=== PATIENT | male | born 1960 | race Caucasian/White ===

== ENCOUNTER 2024-12-24 23:56 | Emergency (ER) | payer OTHER, SELFPAY ==
[2024-12-25] VITALS (26 sets, daily range): BP systolic 89–166; BP diastolic 53–88; PULSE 71–110; RESP 11–29; TEMP 37.1; O2SAT 84–100; BMI 21.1
--- NOTE | 2024-12-25 00:46 | ED_ITS ---
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 Patient is adamant that he is not having any actual chest pain, he states that he has been having chemo for the past year, he states that it is supposed to be daily, he denies any other symptoms at this time. Related Data Allergies Allergy/AdvReac Type Severity Reaction Status Date / Time No Known Drug Allergies Allergy Verified 12/25/24 00:35 Review of Systems Review of Systems Narrative: General: Denies fever, chills, weight loss HEENT: Denies headache, eye drainage, eye irritation, head trauma, sore throat, voice change Cardiovascular: Denies any chest pain, palpitations, tachycardia Respiratory: Denies any shortness of breath, cough, wheeze, stridor GI/: Positive nausea and vomiting Denies any abdominal pain, diarrhea, bright red blood per rectum, melanotic stools, urinary frequency, urinary retention, dysuria, hematuria MSK: Denies any joint pain, muscle pains, swelling Skin: Denies any rashes, lesions, discoloration Neuro: Denies any headache, lightheadedness, dizziness, fainting, weakness Psych: Denies SI/HI Exam Narrative Exam Narrative: General: Frail, cachectic Cooperative, not in acute distress HEENT: Normocephalic, atraumatic, PERRLA, normal sclera, eyelids normal Neck: Active full range of motion, atraumatic Chest: Normal to inspection, negative crepitus, no overlying erythema ecchymosis Respiratory: Normal respiratory effort, not in acute respiratory distress, clear to auscultation bilaterally negative cough, wheeze, tachypnea, rhonchi, rales Cardiology: Regular rate rhythm negative gallop, murmur, rubs GI/: No tenderness to palpation, soft, non rigid, normal to inspection, exam deferred MSK: Full active range of motion in all 4 extremities, atraumatic, no tenderness to palpation of any bony prominences, PICC line noted to the left upper extremity there is no signs of erythema or purulent discharge noted Skin: No rashes or lesions noted Neuro: Alert awake oriented x3, moves all 4 extremities spontaneously, cranial nerves intact, able to answer all questions appropriately follows commands appropriately Psych: Cooperative, negative suicidal or homicidal ideations Initial Vital Signs Initial Vital Signs: Vital Signs Pulse Oximetry 100 12/25/24 00:04 Course Orders Ordered: ED Orders 12/25/24 01:14 Complete Blood Count AUTO DIFF Stat Comprehensive Metabolic Panel Stat Lipase Stat MAG [Magnesium] Stat 12/25/24 02:37 CT head/brain wo con Stat Discontinued Medications Diphenhydramine HCl (Diphenhydramine 50 Mg/Ml Vial) 25 mg IV NOW ONE Stop: 12/25/24 02:01 Last Admin: 12/25/24 02:17 Dose: 25 mg Documented By: CHICO Hydromorphone HCl (Hydromorphone 1 Mg Inj) 1 mg IV NOW ONE Stop: 12/25/24 02:38 Last Admin: 12/25/24 02:51 Dose: 1 mg Documented By: ALEXANDRA Sodium Chloride (Normal Saline 0.9%) 1,000 mls @ 1,000 mls/hr IV BOLUS ONE Stop: 12/25/24 01:45 Last Infusion: 12/25/24 02:17 Dose: Infused Documented By: Admin: 12/25/24 01:11 Dose: 1,000 mls/hr Documented By: CHICO Metoclopramide HCl (Metoclopramide 10 Mg/2 Ml Inj) 10 mg IV NOW ONE Stop: 12/25/24 02:01 Last Admin: 12/25/24 02:17 Dose: 10 mg Documented By: CHICO Morphine Sulfate (Morphine 4 Mg/Ml Inj) 4 mg IV NOW ONE Stop: 12/25/24 00:49 Last Admin: 12/25/24 01:10 Dose: 4 mg Documented By: CHICO Ondansetron HCl (Ondansetron 4 Mg/2 Ml Inj) 4 mg IV NOW ONE Stop: 12/25/24 00:47 Last Admin: 12/25/24 01:10 Dose: 4 mg Documented By: CHICO Vital Signs Vital signs: Vital Signs - 8 hr 12/25/24 00:04 12/25/24 00:05 12/25/24 00:05 Temperature Pulse Rate 105 H Respiratory Rate Blood Pressure 166/88 H Pulse Oximetry 100 100 Oxygen Delivery Method 12/25/24 00:08 12/25/24 00:08 12/25/24 00:30 Temperature 98.7 F 98.7 F Pulse Rate 105 H 101 H 88 Respiratory Rate 20 14 Blood Pressure 166/88 H 166/88 H Pulse Oximetry 100 100 99 Oxygen Delivery Method Room Air Room Air Room Air 12/25/24 00:30 12/25/24 01:00 12/25/24 01:00 Temperature Pulse Rate 92 H Respiratory Rate 15 Blood Pressure 117/68 105/59 L Pulse Oximetry 98 Oxygen Delivery Method 12/25/24 01:30 12/25/24 01:30 12/25/24 02:00 Temperature Pulse Rate 86 87 Respiratory Rate 21 14 Blood Pressure 111/62 Pulse Oximetry 99 97 Oxygen Delivery Method Room Air 12/25/24 02:00 Temperature Pulse Rate Respiratory Rate Blood Pressure 110/64 Pulse Oximetry Oxygen Delivery Method MDM - Nausea/Vomiting/Diarrhea Differential Diagnosis Differential diagnosis: Likely drug-induced nausea and vomiting, dehydration and other (Electrolyte abnormality) Lab Data 12/25/24 01:14 12/25/24 01:14 Labs: Lab Results 12/25/24 Range/Units 01:14 WBC 0.6 L* (4.5-11.0) X10^3/uL RBC 2.44 L (4.5-5.9) X10^6/uL Hgb 8.4 L (13.5-17.5) g/dL Hct 24.8 L (41-53) % MCV 101.9 H (80-100) fL MCH 34.6 H (26-34) PG MCHC 34.0 (30-36) % RDW 16.8 H (11.6-14.8) % Plt Count 24 L* (150-400) X10^3/uL Neut % (Auto) 36.5 L (50-75) % Lymph % (Auto) 53.0 H (25-40) % [place] % (Auto) 7.4 (3-14) % Eos % (Auto) 0.8 L (2-4) % Baso % (Auto) 2.3 H (0-2) % Neut # (Auto) 200 L (9629-4485) /uL Lymph # (Auto) 300 L (7501-4710) /uL [place] # (Auto) 0 (0-900) /uL Eos # (Auto) 0 (0-450) /uL Baso # (Auto) 0 (0-100) /uL Platelet Estimate Decreased on smear RBC Morphology See below Macrocytosis 1+ H Sodium 138 (137-145) mmol/L Potassium 3.3 L (3.4-5.1) mmol/L Chloride 109 H (98-107) mmol/L Carbon Dioxide 21 L (22-32) mmol/L BUN 15 (9-20) mg/dL Creatinine 0.80 (0.66-1.25) mg/dL Estimated GFR > 60 (>60) mL/min BUN/Creatinine Ratio 18.8 (6-22) Glucose 107 H (70-99) mg/dL Calcium 9.0 (8.4-10.2) mg/dL Magnesium 1.6 (1.6-2.3) mg/dL Total Bilirubin 0.9 (0.2-1.3) mg/dL AST 49 (17-59) IU/L ALT 65 H (<50) IU/L Alkaline Phosphatase 89 (38-126) U/L Total Protein 6.1 L (6.3-8.2) g/dL Albumin 3.6 (3.5-5.0) g/dL Globulin 2.5 (1.7-4.1) g/dL Albumin/Globulin Ratio 1.4 (1.0-2.8) Lipase 23 (23-300) U/L Imaging Data CT scan - head: Radiologist's Impression: Preliminary read showing low attenuation structure within the medial left occipital with blurring of the osman-white cortical interface possibly related to acute or subacute infarct no comparison available [facility] Narrative Medical decision making narrative: 64-year-old male with a past medical history of leukemia on chemotherapy presenting from home via EMS for evaluation of nausea and vomiting, states that he had his chemotherapy on 12/24/2024 states that he normally does get nauseous but states that this was a little worse than normal therefore called medics, he states that after he threw up was having some burning sensation to his chest but denies any actual chest pain, he states that this is common whenever he does throw up. At time of evaluation he is adamant that he is not having any chest pain or shortness breath. His nausea has significantly improved, but is complaining of a dull headache. He denies any other symptoms at this time. Had lab work performed here, patient noted to be leukopenic at 0.6, however patient is currently undergoing chemotherapy, platelets also low at 24 however patient is not having any signs of bleeding no indication for platelet transfusion at this time, hemoglobin 8.4 no previous for comparison but patient not having any signs of bleeding, patient is afebrile, patient Chem panel otherwise unremarkable slight hypokalemia at 3.3 otherwise lab work without any acute findings 7.9.25 @ 0230: Patient was re-evaluated, he is stating that his nausea and vomiting has completely resolved, however he states that he is still having a headache. He states that he has been headache intermittent and persistent for several months, states it is not worse than normal but states that the nausea and vomiting ?flared it up he states that he has been having this dull headache ever since he had brain surgery performed. At time of evaluation NIH of 0 no focal deficits he denies any head strike trauma not on any blood thinners. Did order migraine cocktail however patient is still stating he is having 9/10 headache therefore we will add additional pain medication as well as obtain CT head to rule out any acute findings. 0320: Discussed case with radiologist Dr. Vick, states that it is difficult to determine whether patient is having acute or remote infarct within the occipital region, she states that it is fairly large and would most likely result in a significant deficit for the patient but without comparison she is unable to definitively state whether it is acute subacute or chronic. Patient states that his brain surgery was done at [facility] at the beginning of this year. He still remains without any focal deficits able to move 4 extremities spontaneously headache has resolved after administration of Dilaudid, however given CT scan read we will reach out to neurology to discuss case further 0329: Discussed case with Neurology at [facility], she states that she will review the patient's records and previous imaging and we will give call back for further evaluation and recommendation. 0349: Discussed case with Dr. godoy (neurology), states that patient patient was seen at [facility], however she was able to see notes as well as previous MRI showing chronic findings therefore doesnt believe that CT finding is acute. No further recs at this time given chronic finding. 0355: Patient was re-evaluated, patient was sleeping soundly in stretcher was able to be aroused, Patient was informed of his findings of his CT scan, has had resolution of his symptoms after administration medication, he was given strict return precautions he verbalized understanding of this and agrees to being discharged home with outpatient follow up Discharge Plan Departure Patient Disposition: Home Clinical Impression: Nausea & vomiting, Headache Activity Restrictions/Additional Instructions: Please follow up with your oncology team as well as her primary care doctor Please read the discharge instructions sheet carefully and bring all papers to all doctor follow-up visits, as it may contain information that your doctor may want to see. Disease processes change and evolve, if your symptoms worsen or if you develop any new symptoms that are concerning to you please return for evaluation. Your evaluation today does not show any evidence of any life- threatening/serious illnesses requiring admission to the hospital or surgery. Please follow-up with your doctor for re-evaluation in approximately 1 day. Seek immediate medical attention for any worrisome symptoms. *If you do not have a primary care provider please contact the [facility] Resource line at [phone]. They will ask some questions about your medical history and help get you set up with a doctor in the community. Referrals: Rivera Ortiz MD [Primary Care Provider, Family Practice] Stand Alone Forms: Patient Portal/API
[2024-12-25] MEDS: MORPHINE 4 MG/ML INJ IV (01:10)
[2024-12-25] MEDS: ONDANSETRON 4 MG/2 ML INJ IV (01:10)
[2024-12-25] MEDS: SODIUM CHLORIDE 0.9% 1,000 ML 1000 ML IV ×2 (01:11→04:08)
[2024-12-25 01:35] LABS: Hematocrit 24.8 % (41-53); Hemoglobin 8.4 g/dL (13.5-17.5); Lymphocytes Absolute Auto 300 /uL (1100-4500); Mean Corpuscular HGB Conc 34.0 % (30-36); Mean Corpuscular Hemoglobin 34.6 PG (26-34); Mean Corpuscular Volume 101.9 fL (80-100)
[2024-12-25 01:38] LABS: Add Manual Diff / Slide Review SLIDE REVIEW; Platelet Count 24 X10^3/uL (150-400)
[2024-12-25 01:49] LABS: Lipase 23 U/L (23-300); Magnesium 1.6 mg/dL (1.6-2.3)
[2024-12-25 01:50] LABS: Alanine Aminotransferase 65 IU/L (<50); Albumin 3.6 g/dL (3.5-5.0); Albumin Globulin Ratio 1.4 (1.0-2.8); Alkaline Phosphatase 89 U/L (38-126); Blood Urea Nitrogen 15 mg/dL (9-20); Calcium 9.0 mg/dL (8.4-10.2); Carbon Dioxide 21 mmol/L (22-32); Chloride 109 mmol/L (98-107); Estimated Glomerular Filt Rate > 60 mL/min (>60); Globulin 2.5 g/dL (1.7-4.1); Glucose 107 mg/dL (70-99); HEMOLYSIS < 15 (0-50); Potassium 3.3 mmol/L (3.4-5.1); Sodium 138 mmol/L (137-145); Total Protein 6.1 g/dL (6.3-8.2)
[2024-12-25 02:07] LABS: Macrocytosis 1+
[2024-12-25] MEDS: METOCLOPRAMIDE 10 MG/2 ML INJ IV (02:17)
[2024-12-25] MEDS: diphenhydrAMINE 50 MG/ML VIAL 25 MG IV (02:17)
--- NOTE | 2024-12-25 02:37 | DI.CT.S_ITS ---
PROCEDURE: CT HEAD/BRAIN WO CON INDICATIONS: Headache, history of brain surgery TECHNIQUE: Noncontrast 4.5 mm thick angled axial sections acquired from the foramen magnum to the vertex, with coronal and sagittal reformats. For radiation dose reduction, the following was used: automated exposure control, adjustment of mA and/or kV according to patient size. COMPARISON: None. FINDINGS: Image quality: Diagnostic. CSF spaces: Basal cisterns are patent. No extra-axial fluid collections. The ventricles are symmetric in size and shape. Brain: No intracranial bleeds or mass effect. There is cerebral volume loss, with resultant ventricular and sulcal prominence. There are periventricular and deep white matter chronic small vessel ischemic changes. There is subacute infarct involving the left [employer] distribution of the left occipital lobe with cytotoxic edema present. There is intracranial internal carotid artery atherosclerosis. Skull and face: Remote left temporal craniotomy. Calvarium and visualized facial bones appear intact, without suspicious lesions. Sinuses: Visualized sinuses and mastoids are clear. 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 Comment: Final report is concordant with preliminary interpretation provided by [facility]. At the time of preliminary interpretation, findings were discussed with the ordering ED physician. This occurred on 12/25/2024 at 0320 hours PDT. Dictated by: Edy Blanco M.D. on 12/25/2024 at 7:54 Approved by: Edy Blanco M.D. on 12/25/2024 at 7:56
[2024-12-25] MEDS: HYDROMORPHONE 1 MG INJ IV (02:51)
--- NOTE | 2024-12-25 09:07 | PC.NURSE ---
Pt reports feeling better at shift change. continues to rest on stretcher. trying to find a ride [place] to [place]. was contacted and unable to drive and is also helping to try and find pt a ride home.
== END 2024-12-25 10:03 | disposition home or self-care (01) ==
PROVIDERS: Emergency Provider Student in an Organized Health Care Education/Training Program; PCP Family Medicine
DX: R11.2 Nausea with vomiting, unspecified (principal); R51.9 Headache, unspecified
CPT/HCPCS: 70450; 80053; 83690; 83735; 85025; 96361; 96374; 96375; 99283; 99284; J1171; J1200; J2270; J2405; J2765